=== PATIENT | female | born 1985 | race Caucasian/White ===

== ENCOUNTER 2019-11-12 18:34 | Emergency (ER) | payer MEDICAID ==
[~2019-11-12] VITALS: Ht 157.5 cm; Wt 58.5 kg
[2019-11-12 18:41] VITALS: BP 135/81
--- NOTE | 2019-11-12 18:58 | NUR ---
Patient taken to bed 11.
--- NOTE | 2019-11-12 19:04 | NUR ---
34 y/o female from home c/o lt ear pain, states "it feels like a bug is biting my ear and it makes me feel warm on the inside" x 2 months. Afebrile at this time. States ear feels "plugged" occassionally. Awake and alert. VSS
--- NOTE | 2019-11-12 19:06 | NUR ---
REPORT RECEIVED FROM DEANNE SOTO FOR CONTINUITY OF CARE
--- NOTE | 2019-11-12 19:06 | NUR ---
Report given to DEANNE Wright. Transfer of care at this time
--- NOTE | 2019-11-12 19:23 | NUR ---
PT SITTING UP IN BED, LOCKED AND IN LOWEST POSITION, HOB ELEVATED , SIDE RAIL X1. RR EVEN AND UNLABORED, A/O X4 , VSS.
[2019-11-12 19:42] VITALS: BP 135/81
--- NOTE | 2019-11-12 19:42 | NUR ---
Patient discharged with v/s stable. Written and verbal after care instructions given and explained. Patient alert, oriented and verbalized understanding of instructions. Ambulatory with steady gait. All questions addressed prior to discharge. ID band removed. Patient advised to follow up with PMD. Rx of AUGMENTIN AND IBUPROFEN given. Patient educated on indication of medication including possible reaction and side effects. Opportunity to ask questions provided and answered.
== END 2019-11-12 19:42 | disposition home or self-care (01) ==
LOC: MED 18:34
DX: H66.92 Otitis media, unspecified, left ear (principal); R07.9 Chest pain, unspecified; Z88.2 Allergy status to sulfonamides
CPT/HCPCS: 93005; 99283